=== PATIENT | male | born 2000 | race Caucasian/White ===

== ENCOUNTER 2024-05-23 08:09 | Emergency (ER) | payer OTHER, SELFPAY ==
--- NOTE | 2024-05-23 08:08 | EKG12_ITS ---
Test Reason : CP Blood Pressure : / mmHG Vent. Rate : 075 BPM Atrial Rate : 075 BPM P-R Int : 152 ms QRS Dur : 094 ms QT Int : 360 ms P-R-T Axes : -25 -16 015 degrees QTc Int : 402 ms Normal sinus rhythm with sinus arrhythmia Normal ECG Confirmed by CAMILLE ETIENNE, RAQUEL ([id number]), commissioning editor ROSALIND ARDON ([id number]) on 05/29/2024 6:13:38 AM Referred By: SHELBY Confirmed By:TISHA OBRIEN MD
[2024-05-23 08:10] VITALS: BP 138/72; PULSE 87; RESP 19; TEMP 36.6; O2SAT 99; BMI 20.8
--- NOTE | 2024-05-23 09:20 | RAD_ITS ---
STUDY: X-RAY CHEST REASON FOR EXAM: Male, 23 years old. Atypical chest pain TECHNIQUE: PA and lateral views of the chest. COMPARISON: None. FINDINGS: The lungs are clear and expanded. There is no demonstrated pleural abnormality. Normal size heart. Normal mediastinum and karla. Normal visualized pulmonary arteries. Normal visualized aortic arch and descending thoracic aorta. Normal visualized thoracic spine. Normal visualized ribs, clavicles, and shoulders. There is no demonstrated abnormality of the visualized soft tissue structures of the upper abdomen. RAD/Chest PA and Lateral IMPRESSION: Normal x-ray examination of the chest. Electronically Signed: Jewel Saldaña MD at 9:40 EDT ,
--- NOTE | 2024-05-23 09:43 | EDS_ITS ---
HPI History of Present Illness Chief Complaint: Chest Pain Informant: patient Narrative Narrative: Patient is a 23-year-old male with family history of coronary artery disease (states mother recently had a heart attack) presenting with chest and back pain. Patient states yesterday he developed some stomach/periumbilical pain around noon. It then moved up to his bilateral lower ribs. Last night it moved into his back more so on the right. He continues to have pain. Is worse with movement and deep breathing. Denies any upper chest pain. Did have subjective fever last night. Took ibuprofen yesterday with no significant of his symptoms. Denies any associated nausea or vomiting. He is his bowel movements been good. Does have a prior history of appendectomy. Does not currently complain of any abdominal pain. Denies any recent URI symptoms, sore throat, cough or congestion. Was at a wedding on (2 days ago) is unsure if he came in contact with someone that was sick. Was worried there could be something more severe going on and came in for further evaluation. Denies any swelling of his legs. Denies any history of DVT or PE. Does not take any medication on a daily basis. No other complaints or concerns reported at this time. PFSH [facility] Home Medications ?Medication ?Instructions ?Recorded ?Last Taken ?Type cyclobenzaprine 10 mg tablet 10 mg PO TID PRN Muscle Spasm #20 05/23/24 Unknown Rx TABLETS Allergy/AdvReac Type Severity Reaction Status Date / Time No Known Allergies Allergy Verified 05/23/24 08:11 Social History Smoking Status: Never smoker [facility] ED Constitutional Constitutional ED: Reports chills and fever(s) ENT ENT ED: Denies rhinorrhea or sore throat Cardiovascular Cardiovascular: Reports as per HPI and chest pain Respiratory/Chest Respiratory/Chest: Denies cough or dyspnea Gastrointestinal Gastrointestinal: Reports abdominal pain; Denies nausea or vomiting Genitourinary Genitourinary ED: Denies dysuria Musculoskeletal Musculoskeletal: Reports back pain; Denies myalgias or neck pain Integumentary Denies rash EXAM Physical Exam Const Vital Signs: 05/23/24 08:10 Temperature 98 F Temperature Source Temporal Pulse Rate 87 Respiratory Rate 19 H Blood Pressure 138/72 H Blood Pressure Mean 94 Pulse Ox 99 Oxygen Delivery Method Room Air Positive well nourished and well developed General Appearance ED: well developed and NAD HEENT Reports moist mucous membranes Eyes PERRL Neck supple and no JVD Chest Wall inspection of chest normal and palpation of chest normal Chest Narrative: No chest wall crepitus appreciated. No anterior tenderness to palpation. Resp normal respiratory effort and clear to auscultation bilaterally Auscultation: Negative for wheezes or diminished lung sounds Cardio regular rate and regular rhythm Peripheral Pulses: pulses 2+ throughout GI normal to inspection, nondistended, normoactive bowel sounds, soft to palpation and non-tender Back/Spine no CVA tenderness Back/Spine Narrative: Tenderness palpation of the right mid thoracic region. No midline tenderness. Increased pain with range of motion and direct palpation. Cervical Spine: Negative for cervical spine tenderness Extremity normal to inspection General Extremety ED: Negative for edema General Extremity: Negative for edema Neuro oriented x3 Sensorium / Orientation: awake and alert Skin no rashes or lesions noted and no wounds MDM MDM MDM Narrative Medical decision making narrative: Patient evaluated for chest and back pain. Pain really appears to be more muscle skeletal. Differential includes was not limited to thoracic strain, pneumonia, pulmonary contusion, rib contusion and pneumothorax. Low suspicion for ACS. EKG is obtained which shows normal sinus rhythm. I do not suspect a cardiac process at this time. He is PE RC negative I do not think requires workup for pulmonary emboli. He is not any type of respiratory distress. Denies any trauma. Has no overlying rash concerning for shingles. 2 view x-ray of the chest reviewed by myself as well as radiology does not show any acute process. Patient given Motrin in the emergency room. Suspect that this is more muscle skeletal pain. Will place the patient on NSAIDs and muscle relaxer. Given return precautions. Not sure what to make of the patient's reported fever. Possibly has may be an early viral illness is having myalgias. He is not having any cough and does not have any signs of pneumonia or fever in the emergency room. Radiography Diagnostic Testing: Clinical Impression(s) from Imaging Studies Chest X-Ray 05/23/24 09:20 IMPRESSION: Normal x-ray examination of the chest. Electronically Signed: Jewel Saldaña MD at 9:40 EDT , Rhythm Strip Rhythm Strip: Sinus Rhythm Rate: 75 Ectopy: None EKG Initial EKG: Attestation: I personally reviewed and interpreted this EKG as follows: Interpretation: Sinus Rhythm Comments: Normal sinus rhythm at a rate of 75 bpm Normal axis Normal intervals Normal ST segments Sinus arrhythmia consistent with respiratory variation Prior EKG tracings: not available for review Prior: No Prior Discharge Plan Triage Chief Complaint: Chest Pain ED Provider: Malini Cabrera Dx/Rx/DC Orders Clinical Impression: Acute thoracic myofascial strain Instructions: ED Chest Pain, Noncardiac (Child) Prescriptions: New cyclobenzaprine 10 mg tablet 10 mg PO TID PRN (Reason: Muscle Spasm) Qty: 20 0RF Primary Care Provider: Care Physician,No Primary Referrals: Alen Stratton, DO [Non-Staff] - As Needed Care Physician,No Primary [Primary Care Provider] - Activity Restrictions/Additional Instructions: Your chest x-ray and EKG were normal. Please return here if you have progression or worsening your symptoms. I recommend taking 600 mg (3 [id number] tablets) of ibuprofen up to every 6 hours as needed for pain control. Use heat to the area. Print Language: Filipino Disposition Disposition: Home, Self Care
--- NOTE | 2024-05-23 09:53 | ED.RN ---
c/o of rib pain and rt back pain
[2024-05-23] MEDS: Ibuprofen 600 MG Tablet PO (09:54)
[2024-05-23 10:09] VITALS: BP 109/68; PULSE 72; RESP 16; O2SAT 98
== END 2024-05-23 10:30 | disposition home or self-care (01) ==
PROVIDERS: Emergency Provider Emergency Medicine; Visit Provider Emergency Medicine
DX: S29.019A Strain of muscle and tendon of unspecified wall of thorax, initial encounter (principal); R07.9 Chest pain, unspecified; Z90.49 Acquired absence of other specified parts of digestive tract
CPT/HCPCS: 71046; 93005; 99282